=== PATIENT | female | born 2000 | race Caucasian/White ===

== ENCOUNTER 2021-10-24 13:33 | Emergency (ER) | payer MEDICAID ==
[~2021-10-24] VITALS: Ht 167.6 cm; Wt 55.0 kg
[2021-10-24 13:50] VITALS: BP 118/45
[2021-10-24] MEDS ORDERED: IBUP-2029 MT (16:35)
== END 2021-10-24 17:20 | disposition home or self-care (01) ==
LOC: ER 13:33
DX: S00.83XA Contusion of other part of head, initial encounter (principal); Y04.0XXA Assault by unarmed brawl or fight, initial encounter; Y93.89 Activity, other specified; Y92.89 Other specified places as the place of occurrence of the external cause; Y99.8 Other external cause status
CPT/HCPCS: 70486; 99284